=== PATIENT | male | born 1965 | race Caucasian/White ===

== ENCOUNTER 2016-12-13 14:10 | Emergency (ER) | payer OTHER ==
[~2016-12-13] VITALS: Ht 177.8 cm; Wt 90.9 kg
[2016-12-13] MEDS ORDERED: PROT1TAB2 PO (14:19)
[2016-12-13] MEDS ORDERED: CLAR1TAB2 PO (14:19)
[2016-12-13] MEDS ORDERED: IPRATROPIUM 0.5MG/ALBUTEROL 2.5MG INH SOL UD 3ML (DUONEB)(J7620) NEB ONE (14:45)
[2016-12-13] MEDS ORDERED: methylPREDNISolone INJ 125 MG/2 ML VIAL (J2930) IV ONE (14:45)
[2016-12-13] MEDS ORDERED: FAMOTIDINE IV BAG 20 MG in APPROPRIATE DILUENT 1 EA IV ONE (14:45)
[2016-12-13] MEDS ORDERED: EPIP0.3I2 IJ (16:30)
[2016-12-13 16:40] VITALS: BP 133/83
--- NOTE | 2016-12-13 17:29 | ECGEPIP ---
Stationary ECG Study [facility] - ED Test Date: 2016-12-13 Pat Name: LUZ ELENA BARNES Department: Room: - Gender: M Upholstery Tech: rn : 1965 Requested By: EZEQUIEL Chaney Order Number: [id number] Reading MD: Ne Moreno Measurements Intervals [place] Rate: 94 P: 28 TN: 137 QRS: -24 QRSD: 100 T: 10 QT: 347 QTc: 436 Interpretive Statements SINUS RHYTHM PROBABLE LATERAL MYOCARDIAL INFARCTION, OF INDETERMINATE AGE NO PRIOR FOR COMPARISON Electronically Signed On 12-13-2016 17:29:15 EDT by Ne Moreno
== END 2016-12-13 16:43 | disposition home or self-care (01) ==
LOC: M ED 14:10
DX: R06.02 Shortness of breath (principal); R22.0 Localized swelling, mass and lump, head; T63.441A Toxic effect of venom of bees, accidental (unintentional), initial encounter; X58.XXXA Exposure to other specified factors, initial encounter; Y92.89 Other specified places as the place of occurrence of the external cause; Y93.89 Activity, other specified; Y99.8 Other external cause status; Z87.891 Personal history of nicotine dependence; Z79.899 Other long term (current) drug therapy
CPT/HCPCS: 93005; 94640; 96374; 96375; 99284; J2930

== ENCOUNTER 2018-04-28 12:18 | Outpatient (RCR) | payer OTHER ==
[~2018-04-28 12:18] MED LIST: CLAR1TAB2 PO; EPIP0.3I2 IJ; PROT1TAB2 PO
== END 2018-04-29 ==
LOC: M PT 12:18
PROVIDERS: ATTEND Physician Assistant
DX: M25.511 Pain in right shoulder (principal)

== ENCOUNTER → 2018-05-12 | Outpatient (CLI) | payer OTHER ==
[2018-05-12 07:06] LABS: BASO % 0.6 % (0.0-1.0); EOS # 0.3 10^3/uL (0.0-0.50); EOS % 5.2 % (0.0-3.0); HEMATOCRIT 44.8 % (42.0-52.0); HEMOGLOBIN 15.4 g/dl (13.5-17.5); LYMPH # 1.3 10^3/uL (1.5-4.5); LYMPH % 26.6 % (24.0-44.0); MEAN CORPUSCULAR HEMOGLOBIN 29.9 pg (27.0-33.0); MEAN CORPUSCULAR HGB CONC 34.4 g/dl (32.0-36.5); MONO # 0.4 10^3/uL (0.0-0.8); MONO % 7.8 % (0.0-5.0); NEUTROPHILS # 2.9 10^3/uL (1.8-7.7); NEUTROPHILS % 59.2 % (36.0-66.0); PLATELET COUNT, AUTOMATED 236 10^3/uL (150-450); RED BLOOD COUNT 5.15 10^6/uL (4.30-6.10); WHITE BLOOD COUNT 4.9 10^3/uL (4.0-10.0)
[2018-05-12 07:32] LABS: ALT/SGPT 29 U/L (12-78); BILIRUBIN,TOTAL 0.5 MG/DL (0.2-1.0); BLOOD UREA NITROGEN 26 MG/DL (7-18); CALCIUM LEVEL 9.1 MG/DL (8.5-10.1); CARBON DIOXIDE LEVEL 24 MEQ/L (21-32); CHLORIDE LEVEL 108 MEQ/L (98-107); CHOLESTEROL LEVEL 222 MG/DL (<200); GLOMERULAR FILTRATION RATE > 60.0 (>56); GLUCOSE, FASTING 106 MG/DL (70-100); HDL CHOLESTEROL 50 MG/DL (>40); LDL CHOLESTEROL 143 MG/DL (<100); NON-HDL-C 172 MG/DL; POTASSIUM SERUM 4.4 MEQ/L (3.5-5.1); SODIUM LEVEL 141 MEQ/L (136-145); TOTAL PROTEIN 6.5 GM/DL (6.4-8.2); TRIGLYCERIDES LEVEL 145 MG/DL (<150)
== END ==
LOC: M LAB 06:35
PROVIDERS: ATTEND Family Medicine
DX: Z00.00 Encounter for general adult medical examination without abnormal findings (principal)

== ENCOUNTER → 2018-05-14 | Outpatient (CLI) | payer OTHER ==
--- NOTE | 2018-05-14 14:09 | REP ---
MRI RIGHT SHOULDER: TECHNIQUE: Axial T2 fat sat, gradient echo, sagittal oblique T2 fat sat, coronal oblique T1, T2 fat sat. Supraspinatus tendon demonstrates diffuse tendinopathy with a full thickness partial tear, which is fairly high grade. The full thickness tear is predominantly anteriorly located. Other rotator cuff tendons appear intact. There are moderate hypertrophic degenerative changes of the acromioclavicular joint with subchondral marrow edema. Acromion is type 2. Biceps tendon is within the bicipital groove with mild surrounding fluid. There is no Hill-Sachs deformity. No abnormal signal is seen in the deltoid muscle. There is fraying of the biceps labral complex. I do not see evidence of a labral tear. No other abnormal bone marrow signal is seen. There is a moderate joint effusion, with fluid extending into the subacromial/subdeltoid bursae. IMPRESSION: Fairly high-grade full thickness partial tear anterior supraspinatus tendon with moderate diffuse tendinopathy of the more posterior tendon. No other evidence of rotator cuff tendon tear. Moderate hypertrophic degenerative changes acromioclavicular joint with a type 2 acromion. There is fraying of the biceps labral complex with no evidence of a labral tear. Moderate joint effusion with fluid extending into the subacromial/subdeltoid bursae. Electronically Signed by Rigo Rodriges MD 05/14/2018 04:09 P
== END ==
LOC: M RAD 08:40
PROVIDERS: ATTEND Family Medicine
DX: S46.911A Strain of unspecified muscle, fascia and tendon at shoulder and upper arm level, right arm, initial encounter (principal); X58.XXXA Exposure to other specified factors, initial encounter; Y92.9 Unspecified place or not applicable; M25.411 Effusion, right shoulder

== ENCOUNTER → 2018-05-27 | Outpatient (RCR) | payer OTHER | LOC: M PT 05-04 07:08 | PROVIDERS: ATTEND Family Medicine | DX: M25.511 Pain in right shoulder (principal) ==

== ENCOUNTER → 2018-06-25 | Outpatient (CLI) | payer OTHER ==
[2018-06-25 15:13] LABS: BASO % 0.3 % (0.0-1.0); EOS # 0.2 10^3/uL (0.0-0.50); HEMATOCRIT 44.8 % (42.0-52.0); HEMOGLOBIN 15.5 g/dl (13.5-17.5); LYMPH # 1.6 10^3/uL (1.5-4.5); LYMPH % 15.2 % (24.0-44.0); MEAN CORPUSCULAR HEMOGLOBIN 30.7 pg (27.0-33.0); MEAN CORPUSCULAR HGB CONC 34.6 g/dl (32.0-36.5); MEAN CORPUSCULAR VOLUME 88.7 fl (80.0-96.0); MONO # 0.9 10^3/uL (0.0-0.8); MONO % 8.3 % (0.0-5.0); NEUTROPHILS # 7.8 10^3/uL (1.8-7.7); NEUTROPHILS % 73.8 % (36.0-66.0); PLATELET COUNT, AUTOMATED 238 10^3/uL (150-450); RED BLOOD COUNT 5.05 10^6/uL (4.30-6.10); WHITE BLOOD COUNT 10.6 10^3/uL (4.0-10.0)
[2018-06-25 15:42] LABS: ALBUMIN 3.9 GM/DL (3.2-5.2); ALT/SGPT 27 U/L (12-78); BILIRUBIN,TOTAL 0.4 MG/DL (0.2-1.0); BLOOD UREA NITROGEN 19 MG/DL (7-18); CALCIUM LEVEL 8.8 MG/DL (8.5-10.1); CARBON DIOXIDE LEVEL 26 MEQ/L (21-32); CHLORIDE LEVEL 107 MEQ/L (98-107); CREATININE FOR GFR 1.16 MG/DL (0.70-1.30); GLOMERULAR FILTRATION RATE > 60.0 (>56); GLUCOSE, FASTING 148 MG/DL (70-100); POTASSIUM SERUM 3.9 MEQ/L (3.5-5.1); SODIUM LEVEL 141 MEQ/L (136-145); TOTAL PROTEIN 6.6 GM/DL (6.4-8.2)
== END ==
LOC: M LAB 14:44
PROVIDERS: ATTEND Family Medicine
DX: Z01.812 Encounter for preprocedural laboratory examination (principal)

== ENCOUNTER → 2018-08-17 | Outpatient (CLI) | payer OTHER ==
--- NOTE | 2018-08-18 11:48 | REP ---
Clinical: Cough . Comparison: None . Technique: PA and lateral. Findings: The mediastinum and cardiac silhouette are normal. The lung llanos are clear and without acute consolidation, effusion, or pneumothorax. The skeletal structures are intact and normal. Impression: 1. No acute cardiopulmonary process. 2. No prior examinations available for comparison and if the patient remains symptomatic consider chest CT for further investigation. Electronically Signed by Jayy Acosta MD 08/18/2018 11:17 A
== END ==
LOC: M RAD 13:25
PROVIDERS: ATTEND Internal Medicine Pulmonary Disease
DX: R05 Cough (principal)

== ENCOUNTER → 2018-11-05 | Outpatient (CLI) | payer OTHER ==
[2018-11-05 08:46] LABS: BLOOD UREA NITROGEN 22 MG/DL (7-18); CALCIUM LEVEL 9.1 MG/DL (8.5-10.1); CARBON DIOXIDE LEVEL 28 MEQ/L (21-32); CHLORIDE LEVEL 105 MEQ/L (98-107); CREATININE FOR GFR 1.21 MG/DL (0.70-1.30); GLOMERULAR FILTRATION RATE > 60.0 (>56); GLUCOSE, FASTING 95 MG/DL (70-100); POTASSIUM SERUM 3.9 MEQ/L (3.5-5.1); SODIUM LEVEL 141 MEQ/L (136-145)
== END ==
LOC: M LAB 06:55
PROVIDERS: ATTEND Family Medicine
DX: R03.0 Elevated blood-pressure reading, without diagnosis of hypertension (principal)

== ENCOUNTER → 2020-12-12 | Outpatient (REF) | LOC: M LABSMTC 10:21 | PROVIDERS: ATTEND Pediatrics | DX: Z11.52 Encounter for screening for COVID-19 (principal) ==

== ENCOUNTER → 2021-01-07 | Outpatient (CLI) | payer OTHER ==
[~2021-01-07] MED LIST changes: +HYDR-3490 PO; +LORA-243 PO; +NEXI20CA PO
== END ==
LOC: M LABSMTC 09:57
PROVIDERS: ATTEND Anesthesiology
DX: Z01.818 Encounter for other preprocedural examination (principal); Z11.52 Encounter for screening for COVID-19

== ENCOUNTER → 2021-01-10 | Outpatient (CLI) | payer OTHER ==
[2021-01-10 07:29] LABS: HEMATOCRIT 47.3 % (42.0-52.0); MEAN CORPUSCULAR HEMOGLOBIN 30.1 pg (27.0-33.0); MEAN CORPUSCULAR HGB CONC 33.8 g/dl (32.0-36.5); MEAN CORPUSCULAR VOLUME 89.1 fl (80.0-96.0); PLATELET COUNT, AUTOMATED 221 10^3/uL (150-450); RED BLOOD COUNT 5.31 10^6/uL (4.30-6.10); WHITE BLOOD COUNT 5.7 10^3/uL (4.0-10.0)
[2021-01-10 07:53] LABS: ALBUMIN 3.7 GM/DL (3.2-5.2); ALT/SGPT 31 U/L (12-78); BILIRUBIN,TOTAL 0.7 MG/DL (0.2-1.0); BLOOD UREA NITROGEN 19 MG/DL (7-18); CALCIUM LEVEL 9.4 MG/DL (8.5-10.1); CARBON DIOXIDE LEVEL 30 MEQ/L (21-32); CHLORIDE LEVEL 108 MEQ/L (98-107); CHOLESTEROL LEVEL 180 MG/DL (<200); CREATININE FOR GFR 0.95 MG/DL (0.70-1.30); GLOMERULAR FILTRATION RATE > 60.0 (>56); GLUCOSE, FASTING 101 MG/DL (70-100); HDL CHOLESTEROL 45 MG/DL (>40); LDL CHOLESTEROL 119 MG/DL (<100); NON-HDL-C 135 MG/DL; POTASSIUM SERUM 3.9 MEQ/L (3.5-5.1); PROSTATIC SPECIFIC AG MONITOR 0.67 NG/ML (< 4.00); SODIUM LEVEL 143 MEQ/L (136-145); TOTAL PROTEIN 6.5 GM/DL (6.4-8.2); TRIGLYCERIDES LEVEL 79 MG/DL (<150)
== END ==
LOC: M LAB 06:35
PROVIDERS: ATTEND Family Medicine
DX: Z00.00 Encounter for general adult medical examination without abnormal findings (principal); Z12.5 Encounter for screening for malignant neoplasm of prostate

== ENCOUNTER 2021-01-11 06:48 | Day surgery (SDC) | payer OTHER ==
[~2021-01-11] VITALS: Ht 177.8 cm; Wt 85.3 kg
[~2021-01-11 06:48] MED LIST changes: +NS 1,000 ML IV ONE
--- OUTSIDE RECORDS SUMMARY | 2021-01-11 06:55 | CCD | Continuity of Care Document ---
Author Author Reese ANAYA A-C Organization Unknown Address [address] [facility] [facility], [address] [place] [address] Phone [phone] Care Team Providers Care Poultryman Name Role Phone Chidi Diaz M.D. AUTM [phone] Problems Active Problems Provider Date Essential hypertension RHIANNA Lehman Onset: Social History Type Date Description Comments Sex Unknown ETOH Use 6 A Week Tobacco Use Start: Unknown Non Smoker Allergies, Adverse Reactions, Alerts Description No Known Drug Allergies Medications Active Medications SIG Qnty Indications Ordering Provide r Date Suprep Bowel Prep Kit 17.5-3.13-1.6GM/177ML Solution take per doctor's bowel prep instructions. 354ml Z12.1 1 Moises Banks MD 11/06/[address] take 4 tabs by mouth prior to procedure per instructions. 4tabs Z12.11 Moises Banks MD 11/06/[address] take 1 capsule by mouth twice daily. Unknown Claritin 10mg Tablets 1 by mouth every day Unknown Blood Pressure Medication-PT Does Not Know What It Is Daily Unknown History Medications Milk Of Magnesia 1200mg/15ML Suspe nsion take 45 milliliters by mouth as directed on colonoscopy prep sheet. Z12.11 Moises Banks MD 11/06/2020 - 11/06/2020 Immunizations Description No Information Available Vital Signs Date Vital Result Comment 11/06/2020 1:05pm BP Systolic 118 mmHg BP Diastolic 82 mmHg Height 69 inches 5'9" Weight 201.00 lb BMI (Body Mass Index) 29.7 kg/m2 [place] Body Weight 160 lb Weight 91.174 kg BSA (Body Surface Area) 2.07 m2 Results Description No Information Available Procedures Date Code Description Status 11/06/2020 99777 Office/Outpatient Established Lo w MDM 20-29 Min Completed Medical Devices Description No Information Available Encounters Type Date Location Provider Dx Diagnosis Office Visit 11/06/2020 1:00p 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 K21.9 Gastro-esophageal reflux dis ease without esophagitis Assessments Date Code Description Provider 11/06/2020 Z12.11 Encounter for screening for ashli gnant neoplasm of colon Alyson A RHIANNA Anaya 11/06/2020 Z86.010 Personal history of colonic poly ps DEB LehmanC 11/06/2020 K22.70 Gaxiola's esophagus without dysp lasia RHIANNA Lehman 11/06/2020 K21.9 Gastro-esophageal reflux disease without esophagitis Alyson A RHIANNA Anaya Plan of Treatment 11/06/2020 - Alyson Gonzalez RHIANNA Anaya* Z12.11 Encounter for screening for malignant neoplasm of colon * Z86.010 Personal history of colonic polyps * K22.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 Reviewed risks and benefits of the procedures, as well as other options, with the patient. Prep for this procedure was discussed with patient, including risks and side effects associated with the prep. Patient verbalized understanding of all of the above and is in agreement to proceed. Patient will seek medical attention for any acute changes. Will monitor. * Follow up:* As scheduled, sooner if needed. Functional Status Description No Information Available Mental Status Description No Information Available Referrals Refer to Reason for Referral Status Appt Date Alyson Anaya, RPA-C screening Created [facility] Gastroenterology [address] [place], [place] [address] [phone]
--- OUTSIDE RECORDS SUMMARY | 2021-01-11 06:55 | CCD | Continuity of Care Document ---
Author Author Reese ANAYA A-C Organization Unknown Address [address] [facility] [facility], [address] [place] [address] Phone [phone] Care Team Providers Care Biofuels Plant Construction Worker Name Role Phone Chidi Diaz M.D. AUTM [phone] Problems Active Problems Provider Date Essential hypertension [...] lb BMI (Body Mass Index) 29.7 kg/m2 [place] Body Weight 160 lb Weight 91.174 kg BSA (Body Surface Area) 2.07 m2 Results Description No Information Available Procedures Description No Information Available Medical Devices Description No Information Available Encounters Description No Information Available Assessments Date Code Description Provider 11/06/2020 Z12.11 Encounter for screening for ashli gnant neoplasm of colon RHIANNA Lehman 11/06/2020 Z86.010 Personal history of colonic poly ps RHIANNA Lehman 11/06/2020 K22.70 Gaxiola's esophagus without dysp lasia RHIANNA Lehman 11/06/2020 K21.9 Gastro-esophageal reflux disease without esophagitis RHIANNA Lehman Plan of Treatment 11/06/2020 - RHIANNA Lehman* Z12.11 Encounter for screening for malignant neoplasm [...] Description No Information Available Referrals Refer to Dr Reason for Referral Status Appt Date Alyson Anaya RPA-C screening Created [facility] Gastroenterology [address] [place] [address] [phone]
--- OUTSIDE RECORDS SUMMARY | 2021-01-11 06:55 | CCD | Continuity of Care Document ---
Author Author Reese ANAYA A-C Organization Unknown Address [address] [facility], [address] [place] [address] Phone [phone] Care Team Providers Care State Attorney Name Role Phone Chidi Diaz M.D. AUTM [phone] Problems Active Problems Provider Date Essential hypertension [...] lb BMI (Body Mass Index) 29.7 kg/m2 [place] Body Weight 160 lb Weight 91.174 kg [...] Appt Date Alyson Anaya RPA-C screening Created [facility] Gastroenterology [address] [place] [address] [phone]
--- OUTSIDE RECORDS SUMMARY | 2021-01-11 06:55 | CCD ---
Continuity of Care Document (CCD) Created on: 11/06/2020 Reese Loya External Reference #: [id number] : [id number] Sex: Male Author Author Reese ANAYA A-C Organization Unknown Address [address] [facility], [address] [place] [address] Phone [phone] Care Team Providers Care Dental Hygienist Mobile Coordinator Name Role Phone Chidi Diaz M.D. AUTM [phone] Problems Active Problems Provider Date Essential hypertension [...] lb BMI (Body Mass Index) 29.7 kg/m2 [place] Body Weight 160 lb Weight 91.174 kg [...] Appt Date Alyson Anaya RPA-C screening Created [facility] Gastroenterology [address] [place] [address] [phone]
--- OUTSIDE RECORDS SUMMARY | 2021-01-11 06:55 | CCD | Continuity of Care Document ---
Author Author Reese GIBSON D.O. Organization Unknown Address [address] [address] Phone [phone] Care Team Providers Care Receiving Manager Name Role Phone Chidi Diaz M.D. AUTM [phone] AUTM Unavailable Problems Active Problems Provider Date Essential hypertension Alyson Nichols RPA-C Onset: Diaphragmatic hernia Moises Gibson D.O Onset: 01/09/2021 Acute bronchitis Moises Gibson D.O Onset: 01/09/2021 Social History Type Date Description Comments Sex Unknown Cigarette Use Former Cigarette Use Pack Years - 30 ETOH Use 6 A Week Tobacco Use Start: Unknown Non Smoker Tobacco Use Start: Unknown End: Unknown Patient is a former smoker Smoking Status Reviewed: 01/09/21 Patient is a former smoker Allergies and adverse reactions Description No Known Drug Allergies Medications Active Medications SIG Qnty Indications Ordering Provide r Date Suprep Bowel Prep Kit 17.5-3.13-1.6GM/177ML Solution take per doctor's bowel prep instructions. 354ml Z12.1 1 Moises Banks MD 11/06/2020 Dulcolax 5mg Tablets take 4 tabs by mouth prior to [...] Available Vital Signs Date Vital Result Comment 01/09/2021 8:12am BP Systolic 124 mmHg BP Diastolic 78 mmHg Heart Rate 59 /min O2 % BldC Oximetry 98 % Height 69 inches 5'9" Weight 194.00 lb BMI (Body Mass Index) 28.6 kg/m2 [place] Body Weight 160 lb Weight 87.998 kg BSA (Body Surface Area) 2.04 m2 11/06/2020 1:05pm BP Systolic 118 mmHg BP Diastolic 82 mmHg Height 69 inches 5'9" Weight 201.00 lb BMI (Body Mass Index) 29.7 kg/m2 [place] Body Weight 160 lb Weight 91.174 kg BSA (Body Surface Area) 2.07 m2 Results Test Acquired Date Facility Test Result H/L Range Note FVL/[place] 01/09/2021 [facility] SEE IMAGE FVC-Pred 4.73 L FVC-Pre 4.89 L FVC-%Pred-Pre 103 L FVC-LLN 3.82 L Fev1-Pred 3.61 L Fev1-Pre 3.72 L Fev1-%Pred-Pre 103 L Fev1-LLN 2.85 L Fev6-Pred 4.53 L Fev6-Pre 4.88 L Fev6-%Pred-Pre 107 L Fev6-LLN 3.64 L Aoe9dqp-Qvvw 76 % Iyn6tfn-Nxm 76 % Xrq3gaj-%Pred-Pre 99 % Axs0psu-FEO 67 % Ash8fno-Dqsu 96 % Lpo4ctq-Gmx 100 % Cvw4ssc-%Pred-Pre 104 % FEFMax-Pred 9.27 L/E/sec FEFMax-Pre 8.31 L/E/sec FEFMax-%Pred-Pre 89 L/E/sec FEFMax-LLN 7.01 L/E/sec Ios3719-Tkii 3.08 L/E/sec Ojf5173-Xyf 3.05 L/E/sec Zap6113-%Pred-Pre 99 L/E/sec Ztb1516-QQD 1.52 L/E/sec ExpTime-Pre 6.85 sec Nur9eky9-Zqic 80 % Vgx9hma3-Ufn 76 % Gdu4lmh7-%Pred-Pre 95 % Yua6akz2-BFW 71 % Procedures Date Code Description Status 01/09/2021 94740 Office/Outpatient New Moderate M DM 45-59 Minutes Completed 11/06/2020 70606 Office/Outpatient Established Lo w MDM 20-29 Min Completed Medical Devices Description No Information Available Encounters Type Date Location Provider Dx Diagnosis Office Visit 01/09/2021 8:30a [facility] Pulmonary/Thoracic D Angelina OgO J20.9 Acute bronchitis, unspecifie d K44.9 Diaphragmatic hernia without obstruction or gangrene Office Visit 11/06/2020 1:00p [facility] Gastroenterology [facility] ctice Alyson Hooksfe, DEBC Z12.11 Encounter for screening for malignant neoplasm of colon Z86.010 Personal history of colonic polyps K22.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 K21.9 Gastro-esophageal reflux dis ease without esophagitis Assessments Date Code Description Provider 01/09/2021 J20.9 Acute bronchitis, unspecified Da curtis Gibson D.O 01/09/2021 K44.9 Diaphragmatic hernia without obs truction or gangrene Moises Gibson D.O 11/06/2020 Z12.11 Encounter for screening for ashli gnant neoplasm of colon Alyson Nichols, MARIA DEL CARMEN-C 11/06/2020 Z86.010 Personal history of colonic poly ps Alyson Anthonyjose, MARIA DEL CARMEN-C 11/06/2020 K22.70 Gaxiola's esophagus without dysp lasia Alyson Gonzalez RHIANNA Nichols 11/06/2020 K21.9 Gastro-esophageal reflux disease without esophagitis Alyson Gonzalez RHIANNA Nichols Plan of Treatment Future Appointment(s):* 01/16/2021 3:31 pm - Uriel Ellison M.D. at [facility] Gastroenterology Practice * 01/11/2021 7:30 am - Uriel Ellison M.D. at [facility] Gastroenterology Practice 01/09/2021 - Moises Gibson D.O* J20.9 Acute bronchitis, unspecified * K44.9 Diaphragmatic hernia without obstruction or gangrene * * New Xrays:* Chest, 2 Views, PA & Lat, Ordered: 01/09/21 * Follow up:* cxr and call with results follow up is PRN please Functional Status Description No Information Available Mental Status Description No Information Available Referrals Refer to Reason for Referral Status Appt Date Alyson Nichols, MARIA DEL CARMEN-C screening Created [facility] Gastroenterology [address] [place] [address] [phone]
--- OUTSIDE RECORDS SUMMARY | 2021-01-11 06:55 | CCD | Continuity of Care Document ---
Author Author Reese ANAYA A-C Organization Unknown Address [address] [facility] [address], [address] [place] [address] Phone [phone] Care Team Providers Care Inbound Customer Service Representative Name Role Phone Chidi Diaz M.D. AUTM [phone] Problems Active Problems Provider Date Essential hypertension [...] lb BMI (Body Mass Index) 29.7 kg/m2 [place] Body Weight 160 lb Weight 91.174 kg [...] Appt Date Alyson Anaya RPA-C screening Created [facility] Gastroenterology [address] [place] [address] [phone]
--- OUTSIDE RECORDS SUMMARY | 2021-01-11 06:55 | CCD | Continuity of Care Document ---
Author Author Reese HARKINS D.O. Organization Unknown Address [address] [address] Phone [phone] Care Team Providers Care Digester Cook Name Role Phone Chidi Diaz M.D. AUTM [phone] Problems Active Problems Provider Date Essential hypertension RHIANNA Lehman Onset: Social History Type Date Description Comments Sex Unknown ETOH Use 6 A Week Tobacco Use Start: Unknown Non Smoker Allergies and adverse reactions Description No Known [...] lb BMI (Body Mass Index) 29.7 kg/m2 [place] Body Weight 160 lb Weight 91.174 kg BSA (Body Surface Area) 2.07 m2 Results Description No Information Available Procedures Date Code Description Status 11/06/2020 05306 Office/Outpatient Established Lo w [facility] 20-29 Min Completed Medical Devices Description No Information Available Encounters Type Date Location Provider Dx Diagnosis Office Visit 11/06/2020 1:00p [facility] Gastroenterology [facility] ctice RHIANNA Lehman Z12.11 Encounter for screening for malignant neoplasm [...] without esophagitis RHIANNA Lehman Plan of Treatment Future Appointment(s):* 01/16/2021 3:31 pm - Uriel Ellison M.D. at [facility] Gastroenterology Practice * 01/11/2021 7:30 am - Uriel Ellison M.D. at [facility] Gastroenterology Practice 11/06/2020 - RHIANNA Lehman* Z12.11 Encounter for [...] Reason for Referral Status Appt Date Alyson Nichols RPA-C screening Created [facility] Gastroenterology [address] [place], [place] [address] [phone]
--- OUTSIDE RECORDS SUMMARY | 2021-01-11 06:56 | CCD ---
Author Author [facility] Organization [facility] Address Unknown Phone Unavailable Care Team Providers Care Special Effects Makeup Artist Name Role Phone Charlebois, A Alyson RPA C Unavailable Unavailable Charlebois, A Alyson RPA C Unavailable Unavailable Charlebois, A Alyson RPA C Unavailable Unavailable Charlebois, A Alyson RPA C Unavailable Unavailable Charlebois, A Alyson RPA C Unavailable Unavailable Charlebois, A Alyson RPA C Unavailable Unavailable Charlebois, A Alyson RPA C Unavailable Unavailable Charlebois, A Alyson RPA C Unavailable Unavailable Charlebois, A Alyson RPA C Unavailable Unavailable Charlebois, A Alyson RPA C Unavailable Unavailable Charlebois, A Alyson RPA C Unavailable Unavailable Charlebois, A Alyson RPA C Unavailable Unavailable Charlebois, A Alyson RPA C Unavailable Unavailable Charlebois, A Alyson RPA C Unavailable Unavailable Charlebois, A Alyson RPA C Unavailable Unavailable Charlebois, A Alyson RPA C Unavailable Unavailable Charlebois, A Alyson RPA C Unavailable Unavailable Charlebois, A Alyson RPA C Unavailable Unavailable Charlebois, A Alyson RPA C Unavailable Unavailable Charlebois, A Alyson RPA C Unavailable Unavailable Charlebois, A Alyson RPA C Unavailable Unavailable Charlebois, A Alyson RPA C Unavailable Unavailable Charlebois, A Alyson RPA C Unavailable Unavailable Charlebois, A Alyson RPA C Unavailable Unavailable Charlebois, A Alyson RPA C Unavailable Unavailable Charlebois, A Alyson RPA C Unavailable Unavailable Charlebois, A Alyson RPA C Unavailable Unavailable Charlebois, A Alyson RPA C Unavailable Unavailable Charlebois, A Alyson RPA C Unavailable Unavailable Charlebois, A Alyson RPA C Unavailable Unavailable Charlebois, A Alyson RPA C Unavailable Unavailable Charlebois, A Alyson RPA C Unavailable Unavailable Charlebois, A Alyson RPA C Unavailable Unavailable Rechlin, P Moises DO Unavailable Unavailable Rechlin, P Moises DO Unavailable Unavailable Rechlin, P Moises DO Unavailable Unavailable Rechlin, P Moises DO Unavailable Unavailable Rechlin, P Moises DO Unavailable Unavailable Rechlin, P Moises DO Unavailable Unavailable Rechlin, P Moises DO Unavailable Unavailable Rechlin, P Moises DO Unavailable Unavailable Rechlin, P Moises DO Unavailable Unavailable Rechlin, P Moises DO Unavailable Unavailable Rechlin, P Moises DO Unavailable Unavailable Rechlin, P Moises DO Unavailable Unavailable Rechlin, P Moises DO Unavailable Unavailable Rechlin, P Moises DO Unavailable Unavailable Rechlin, P Moises DO Unavailable Unavailable Rechlin, P Moises DO Unavailable Unavailable Rechlin, P Moises DO Unavailable Unavailable Rechlin, P Moises DO Unavailable Unavailable Rechlin, P Moises DO Unavailable Unavailable Rechlin, P Moises DO Unavailable Unavailable Rechlin, P Moises DO Unavailable Unavailable Rechlin, P Moises DO Unavailable Unavailable Rechlin, P Moises DO Unavailable Unavailable Rechlin, P Moises DO Unavailable Unavailable Rechlin, P Moises DO Unavailable Unavailable Rechlin, P Moises DO Unavailable Unavailable Rechlin, P Moises DO Unavailable Unavailable Rechlin, P Moises DO Unavailable Unavailable Rechlin, P Moises DO Unavailable Unavailable Rechlin, P Moises DO Unavailable Unavailable Rechlin, P Moises DO Unavailable Unavailable Rechlin, P Moises DO Unavailable Unavailable Rechlin, P Moises DO Unavailable Unavailable Rechlin, P Moises DO Unavailable Unavailable Rechlin, P Moises DO Unavailable Unavailable Rechlin, P Moises DO Unavailable Unavailable Rechlin, P Moises DO Unavailable Unavailable Rechlin, P Moises DO Unavailable Unavailable Rechlin, P Moises DO Unavailable Unavailable Rechlin, P Moises DO Unavailable Unavailable Rechlin, P Moises DO Unavailable Unavailable Rechlin, P Moises DO Unavailable Unavailable Rechlin, P Moises DO Unavailable Unavailable Rechlin, P Moises DO Unavailable Unavailable Rechlin, P Moises DO Unavailable Unavailable Rechlin, P Moises DO Unavailable Unavailable Rechlin, P Moises DO Unavailable Unavailable Rechlin, P Moises DO Unavailable Unavailable Rechlin, P Moises DO Unavailable Unavailable Rechlin, P Moises DO Unavailable Unavailable Rechlin, P Moises DO Unavailable Unavailable Re-disclosure Warning The records that you are about to access may contain information from federally-assisted alcohol or drug abuse programs. If such information is present, then the following federally mandated warning applies: This information has been disclosed to you from records protected by federal confidentiality rules (42 CFR part 2). The federal rules prohibit you from making any further disclosure of this information unless further disclosure is expressly permitted by the written consent of the person to whom it pertains or as otherwise permitted by 42 CFR part 2. A general authorization for the release of medical or other information is NOT sufficient for this purpose. The Federal rules restrict any use of the information to criminally investigate or prosecute any alcohol or drug abuse patient.The records that you are about to access may contain highly sensitive health information, the redisclosure of which is protected by Article 27-F of the [facility] Public Health law. If you continue you may have access to information: Regarding HIV / AIDS; Provided by facilities licensed or operated by the [facility] Office of Mental Health; or Provided by the [facility] Office for People With Developmental Disabilities. If such information is present, then the following [facility] mandated warning applies: This information has been disclosed to you from confidential records which are protected by state law. State law prohibits you from making any further disclosure of this information without the specific written consent of the person to whom it pertains, or as otherwise permitted by law. Any unauthorized further disclosure in violation of state law may result in a fine or care home sentence or both. A general authorization for the release of medical or other information is NOT sufficient authorization for further disc losure. Family History Family Member Name Family Member Gender Family Member Status Date o f Status Description Data Source(s) Unknown Unknown Problem [facility] ([facility]) Unknown Unknown Unknown Unknown Problem [facility] Encounters Encounter Providers Location Date Indications Data Source(s ) Outpatient Attender: Moises Scott/Pallavi/José Miguel/Jose C su 01/09/2021 08:30:00 AM EDT [facility] ([facility]) Outpatient Attender: Alyson Jordan/Pallavi/Lisa aguilar/Darren 11/06/2020 01:00:00 PM EDT [facility] ([facility]) Immunizations Vaccine Date Status Description Data Source(s) COVID-19 VACCINE Pfizer 04/24/2020 12:00:00 AM EST completed [facility] Vaccine Series Complete: YESThis Data wa s Submitted to [facility] Via [email or web address]. COVID-19 VACCINE Pfizer 04/03/2020 12:00:00 AM EST completed [facility] Vaccine Series Complete: NOThis Data was Submitted to [facility] Via [email or web address]. Medications Medication Brand Name Start Date Product Form Dose Route Admi nistrative Instructions Pharmacy Instructions Status Indications Reaction Description Data Source(s) Magnesium Hydroxide 80 MG/ML Oral Suspension Milk Of Magnesi a 11/06/2020 12:00:00 AM EDT ORAL completed [facility] ([facility] ) Bisacodyl 5 MG Delayed Release Oral Tablet [Dulcolax] Dulcol ax 11/06/2020 12:00:00 AM EDT ORAL active M EDENT ([facility]) Suprep Bowel Prep Kit Suprep Bowel Prep Kit 11/06/2020 12:00:00 AM EDT active [facility] ([facility]) Insurance Providers Payer name Policy type / Coverage type Policy ID Covered republican ID Covered republican's relationship to odom Policy Odom Plan Information [facility] [id number] [facility] [employer] Commercial [id number] Self [facility] [id number] SP [id number] [facility] Commercial [id number] Self [id number] [facility] Commercial [id number] Self [id number] [facility] Commercial [id number] Self [id number] [facility] [employer] [id number] Self [id number] [facility] Commercial [id number] Self [facility] Commercial [id number] [facility] Commercial [id number] Self [id number] Problems, Conditions, and Diagnoses Code Display Name Description Problem Type Effective Dates Data Source(s) J20.9 Acute bronchitis Acute bronchitis Problem 01/09/2021 12 :00:00 AM EDT [facility] ([facility]) K44.9 Diaphragmatic hernia Diaphragmatic hernia Problem 01/09/2021 12:00:00 AM EDT [facility] ([facility]) [id number] Essential hypertension Essential hypertension Problem 11/06/2020 12:00:00 AM EDT [facility] ([facility]) Surgeries/Procedures Procedure Description Date Indications Data Source(s) OFFICE OUTPATIENT NEW 45 MINUTES 01/09/2021 12:00:00 A M EDT [facility] ([facility]) OFFICE OUTPATIENT VISIT 15 MINUTES 11/06/2020 12:00:00 AM EDT [facility] ([facility]) Results ID Date Data Source [id number] 01/09/2021 08:11:00 AM EDT [facility] ([facility]) Name Value Range Interpretation Code Description Data Zaira rce(s) Supporting Document(s) PDFReport Laboratory test result [facility] ([facility]) FVC-Pred 4.73 L [facility] ([facility]) FVC-%Pred-Pre 103 L [facility] ([facility]) FVC-LLN 3.82 L [facility] ([facility]) FVC-Pre 4.89 L [facility] ([facility]) Fev1-Pre 3.72 L [facility] ([facility]) Fev1-Pred 3.61 L [facility] ([facility]) Fev1-LLN 2.85 L [facility] ([facility]) Fev1-%Pred-Pre 103 L [facility] ([facility], ) Fev6-Pred 4.53 L [facility] ([facility]) Fev6-%Pred-Pre 107 L [facility] ([facility]) Fev6-Pre 4.88 L [facility] ([facility]) Fev6-LLN 3.64 L [facility] ([facility]) Hoq3iic-Niqf 76 % [facility] ([facility]) Cds2gsr-Xwm 76 % [facility] ([facility]) Khb2nhr-Zork 96 % [facility] ([facility]) Yuw4tah-%Pred-Pre 99 % [facility] ([facility]) Jlc8spo-RJY 67 % [facility] ([facility]) FEFMax-Pred 9.27 L/E/sec [facility] ([facility]) Lxc4ajd-Uus 100 % [facility] ([facility]) Tnd9hhd-%Pred-Pre 104 % [facility] ([facility]) FEFMax-Pre 8.31 L/E/sec [facility] ([facility]) FEFMax-%Pred-Pre 89 L/E/sec [facility] ([facility]) FEFMax-LLN 7.01 L/E/sec [facility] ([facility]) Zfq8479-Btlp 3.08 L/E/sec [facility] ([facility]) Pvs5470-Nuu 3.05 L/E/sec [facility] ([facility]) Jia4440-%Pred-Pre 99 L/E/sec [facility] ([facility]) Tzi0399-ZGU 1.52 L/E/sec [facility] ([facility]) ExpTime-Pre 6.85 sec [facility] ([facility]) Loc4vkp5-%Pred-Pre 95 % [facility] ([facility]) Nso5pko2-Kkf 76 % [facility] ([facility]) Jpg9arr6-Aaiv 80 % [facility] ([facility]) Rxd7kin6-CUL 71 % [facility] ([facility]) ID Date Data Source [id number] 12/12/2020 10:30:00 AM EDT [facility] Name Value Range Interpretation Code Description Data Zaira rce(s) Supporting Document(s) SARS coronavirus 2 RNA [Presence] in Res piratory specimen by DUARTE with probe detection [facility] This lab was ordered by [facility] a nd reported by [facility]. Procedure Social History Code Duration Value Status Description Data Source(s ) Smoking 01/09/2021 12:00:00 AM EDT Patient is a former smoker completed Patient is a former smoker [facility] ([facility]) Vital Signs ID Date Data Source UNK Name Value Range Interpretation Code Description Data Source(s) Systolic blood pressure 124 mm[Hg] 124 mm[Hg] [facility] ([facility]) Diastolic blood pressure 78 mm[Hg] 78 mm[Hg] [facility] ([facility]) Heart rate 59 /min 59 /min [facility] ([facility]) Oxygen saturation in Arterial blood by Pulse oximetry 98 % 98 % [facility] ([facility]) Body height 69 [in_i] 69 [in_i] [facility] ([facility]) 5'9" Body weight 194.00 [lb_av] 194.00 [lb_av] [facility] ([facility] Body mass index (BMI) [Ratio] 28.6 kg/m2 28.6 k g/m2 [facility] ([facility]) [place] body weight 160 [lb_av] 160 [lb_av] [facility] ([facility]) Body weight 87.998 kg 87.998 kg [facility] ([facility]) Body surface area Derived from formula 2.04 m2 2.04 m2 [facility] ([facility]) Systolic blood pressure 118 mm[Hg] 118 mm[Hg] [facility] ([facility]) Body height 69 [in_i] 69 [in_i] [facility] ([facility]) 5'9" Diastolic blood pressure 82 mm[Hg] 82 mm[Hg] [facility] ([facility]) Body weight 201.00 [lb_av] 201.00 [lb_av] [facility] ([facility]) Body mass index (BMI) [Ratio] 29.7 kg/m2 29.7 k g/m2 [facility] ([facility]) [place] body weight 160 [lb_av] 160 [lb_av] [facility] ([facility]) Body weight 91.174 kg 91.174 kg [facility] ([facility]) Body surface area Derived from formula 2.07 m2 2.07 m2 [facility] ([facility])
[2021-01-11] MEDS ORDERED: propofoL 200 MG/20 ML VIAL As Ordered ONE ×2 (07:18→08:10)
[2021-01-11] MEDS ORDERED: LIDOCAINE 2% 100MG/5ML SDV (FOR ANES.) As Ordered ONE (07:18)
[2021-01-11] MEDS ORDERED: fentaNYL 100 MCG/2 ML INJECTION (J3010) As Ordered ONE (07:19)
--- NOTE | 2021-01-11 08:19 | ROOR ---
Patient Name: Reese Loya Procedure Date: 01/11/2021 7:29 AM Date of : 1965 Age: 55 Room: [facility] Gender: Male Note Status: Finalized Procedure: Upper GI endoscopy Indications: Screening for Gaxiola's esophagus, Follow-up of Gaxiola's esophagus Providers: Uriel Ellison MD Referring MD: Chidi Diaz MD Requesting Provider: Medicines: Monitored Anesthesia Care Complications: No immediate complications. Procedure: Pre-Anesthesia Assessment: - Prior to the procedure, a History and Physical was performed, and patient medications and allergies were reviewed. The patient is competent. The risks and benefits of the procedure and the sedation options and risks were discussed with the patient. All questions were answered and informed consent was obtained. Patient identification and proposed procedure were verified by the physician, the nurse and the anesthesiologist in the procedure room. Mental Status Examination: alert and oriented. Airway Examination: normal oropharyngeal airway and neck mobility. Respiratory Examination: clear to auscultation. CV Examination: normal. Prophylactic Antibiotics: The patient does not require prophylactic antibiotics. Prior Anticoagulants: The patient has taken no previous anticoagulant or antiplatelet agents. ASA Grade Assessment: II - A patient with mild systemic disease. After reviewing the risks and benefits, the patient was deemed in satisfactory condition to undergo the procedure. The anesthesia plan was to use monitored anesthesia care (MAC). Immediately prior to administration of medications, the patient was re-assessed for adequacy to receive sedatives. The heart rate, respiratory rate, oxygen saturations, blood pressure, adequacy of pulmonary ventilation, and response to care were monitored throughout the procedure. The physical status of the patient was re-assessed after the procedure. The Endoscope was introduced through the mouth, and advanced to the second part of duodenum. The upper GI endoscopy was accomplished without difficulty. The patient tolerated the procedure well. Findings: A small hiatal hernia was present. LA Grade B (one or more mucosal breaks greater than 5 mm, not extending between the tops of two mucosal folds) esophagitis with no bleeding was found in the distal esophagus. Biopsies were taken with a cold forceps for histology. Verification of patient identification for the specimen was done by the physician and nurse using the patient's name, date and medical record number. Scattered moderate inflammation characterized by erythema and granularity was found in the gastric body and in the gastric antrum. Biopsies were taken with a cold forceps for Helicobacter pylori testing. The duodenal bulb and second portion of the duodenum were normal. Impression: - Small hiatal hernia. - LA Grade B reflux esophagitis. Rule out Gaxiola's esophagus. Biopsied. - Gastritis. Biopsied. - Normal duodenal bulb and second portion of the duodenum. Recommendation: - Patient has a contact number available for emergencies. The signs and symptoms of potential delayed complications were discussed with the patient. Return to normal activities tomorrow. Written discharge instructions were provided to the patient. - High fiber diet. - Continue present medications. - Follow an antireflux regimen. - Recommend acid suppression medication for 8 weeks. - Await pathology results. - Repeat upper endoscopy in 5 years for surveillance of Gaxiola's esophagus. - Telephone GI clinic for pathology results in 2 weeks. - Return to primary care physician. Procedure Code(s): --- Professional --- 46619, Esophagogastroduodenoscopy, flexible, transoral; with biopsy, single or multiple Diagnosis Code(s): --- Professional --- K44.9, Diaphragmatic hernia without obstruction or gangrene K21.0, Gastro-esophageal reflux disease with esophagitis K29.70, Gastritis, unspecified, without bleeding K22.70, Gaxiola's esophagus without dysplasia Z13.810, Encounter for screening for upper gastrointestinal disorder CPT copyright 2019 [employer]. All rights reserved. The codes documented in this report are preliminary and upon gun club manager review may be revised to meet current compliance requirements. Uriel Ellison MD Uriel Ellison MD 01/11/2021 8:18:58 AM Electronically signed by Uriel Ellison MD Number of Addenda: 0 Note Initiated On: 01/11/2021 7:29 AM Estimated Blood Loss: Estimated blood loss was minimal.
--- NOTE | 2021-01-11 08:21 | ROOR ---
Patient Name: Reese Loya Procedure Date: 01/11/2021 7:30 AM Date of : 1965 Age: 55 Room: [facility] Gender: Male Note Status: Finalized Procedure: Colonoscopy Indications: High risk colon cancer surveillance: Personal history of colonic polyps Providers: Uriel Ellison MD Referring MD: Chidi Diaz MD Requesting Provider: Medicines: Monitored Anesthesia Care Complications: No immediate complications. Procedure: Pre-Anesthesia Assessment: - Prior to the procedure, a History and Physical was performed, and patient medications and allergies were reviewed. The patient is competent. The risks and benefits of the procedure and the sedation options and risks were discussed with the patient. All questions were answered and informed consent was obtained. Patient identification and proposed procedure were verified by the physician, the nurse and the anesthesiologist in the procedure room. Mental Status Examination: alert and oriented. Airway Examination: normal oropharyngeal airway and neck mobility. Respiratory Examination: clear to auscultation. CV Examination: normal. Prophylactic Antibiotics: The patient does not require prophylactic antibiotics. Prior Anticoagulants: The patient has taken no previous anticoagulant or antiplatelet agents. ASA Grade Assessment: II - A patient with mild systemic disease. After reviewing the risks and benefits, the patient was deemed in satisfactory condition to undergo the procedure. The anesthesia plan was to use monitored anesthesia care (MAC). Immediately prior to administration of medications, the patient was re-assessed for adequacy to receive sedatives. The heart rate, respiratory rate, oxygen saturations, blood pressure, adequacy of pulmonary ventilation, and response to care were monitored throughout the procedure. The physical status of the patient was re-assessed after the procedure. The Colonoscope was introduced through the anus and advanced to the terminal ileum, with identification of the appendiceal orifice and IC valve. The colonoscopy was performed without difficulty. The patient tolerated the procedure well. The quality of the bowel preparation was good. The terminal ileum, ileocecal valve, appendiceal orifice, and rectum were photographed. Scope insertion time was 2 minutes. Scope withdrawal time was 9 minutes. The total duration of the procedure was 12 minutes. Findings: The perianal and digital rectal examinations were normal. The terminal ileum appeared normal. A 8 mm polyp was found in the sigmoid colon. The polyp was flat and sessile. The polyp was removed with a cold snare. Resection and retrieval were complete. Verification of patient identification for the specimen was done by the physician and nurse using the patient's name, date and medical record number. Estimated blood loss was minimal. Non-bleeding external and internal hemorrhoids were found during retroflexion. The hemorrhoids were small. Impression: - The examined portion of the ileum was normal. - One 8 mm polyp in the sigmoid colon, removed with a cold snare. Resected and retrieved. - Non-bleeding external and internal hemorrhoids. Recommendation: - Patient has a contact number available for emergencies. The signs and symptoms of potential delayed complications were discussed with the patient. Return to normal activities tomorrow. Written discharge instructions were provided to the patient. - High fiber diet. - Continue present medications. - Await pathology results. - Repeat colonoscopy in 5 years for surveillance based on pathology results. - Telephone GI clinic for pathology results in 2 weeks. - Return to primary care physician. Procedure Code(s): --- Professional --- 93752, Colonoscopy, flexible; with removal of tumor(s), polyp(s), or other lesion(s) by snare technique Diagnosis Code(s): --- Professional --- Z86.010, Personal history of colonic polyps K64.8, Other hemorrhoids K63.5, Polyp of colon CPT copyright 2019 [employer]. All rights reserved. The codes documented in this report are preliminary and upon advertising space clerk review may be revised to meet current compliance requirements. Uriel Ellison MD Uriel Ellison MD 01/11/2021 8:21:24 AM Electronically signed by Uriel Ellison MD Number of Addenda: 0 Note Initiated On: 01/11/2021 7:30 AM Estimated Blood Loss: Estimated blood loss was minimal.
[2021-01-11 08:40] VITALS: BP 132/87
== END 2021-01-11 08:48 | disposition home or self-care (01) ==
LOC: M OPP 06:48
PROVIDERS: ATTEND Internal Medicine Gastroenterology
DX: Z12.11 Encounter for screening for malignant neoplasm of colon (principal); Z86.010 Personal history of colon polyps; D12.5 Benign neoplasm of sigmoid colon; K64.8 Other hemorrhoids; K44.9 Diaphragmatic hernia without obstruction or gangrene; K21.00 Gastro-esophageal reflux disease with esophagitis, without bleeding; K29.70 Gastritis, unspecified, without bleeding; K22.70 Barrett's esophagus without dysplasia; Z79.899 Other long term (current) drug therapy
CPT/HCPCS: 43239; 45385; 88305; J3010

== ENCOUNTER → 2021-01-14 | Outpatient (CLI) | payer OTHER ==
[~2021-01-14] MED LIST changes: -NS 1,000 ML IV ONE
--- NOTE | 2021-01-14 08:22 | REP ---
INDICATION: ACUTE BRONCHITIS, UNSPECIFIED COMPARISON: 08/17/2018 TECHNIQUE: PA and lateral. FINDINGS: The mediastinum and cardiac silhouette are normal. The lung llanos are clear and without acute consolidation, effusion, or pneumothorax. The skeletal structures are intact and normal. IMPRESSION: No acute cardiopulmonary process. <Electronically signed by Jayy Acosta > 01/14/21 0818
== END ==
LOC: M RAD 07:03
PROVIDERS: ATTEND Internal Medicine Pulmonary Disease
DX: J20.9 Acute bronchitis, unspecified (principal)

== ENCOUNTER → 2022-05-23 | Outpatient (CLI) | payer OTHER ==
[2022-05-23 12:53] LABS: BASO % 0.4 % (0.0-1.0); EOS # 0.2 10^3/uL (0.0-0.5); EOS % 4.4 % (0.0-3.0); HEMATOCRIT 48.5 % (42.0-52.0); LYMPH # 1.4 10^3/uL (1.5-5.0); LYMPH % 25.7 % (24.0-44.0); MEAN CORPUSCULAR HEMOGLOBIN 29.9 pg (27.0-33.0); MEAN CORPUSCULAR VOLUME 90.7 fl (80.0-96.0); MONO # 0.8 10^3/uL (0.0-0.8); MONO % 14.4 % (2.0-8.0); NEUTROPHILS % 54.7 % (36.0-66.0); PLATELET COUNT, AUTOMATED 207 10^3/uL (150-450); RED BLOOD COUNT 5.35 10^6/uL (4.30-6.10); WHITE BLOOD COUNT 5.5 10^3/uL (4.0-10.0)
[2022-05-23 13:17] LABS: ALBUMIN 3.8 G/DL (3.2-5.2); ALKALINE PHOSPHATASE 66 U/L (46-116); ALT/SGPT 32 U/L (7.0-40); AST/SGOT 35 U/L (<34); BILIRUBIN,TOTAL 0.5 MG/DL (0.3-1.2); BLOOD UREA NITROGEN 13 MG/DL (9-23); CARBON DIOXIDE LEVEL 32 MMOL/L (20-31); CHLORIDE LEVEL 103 MMOL/L (98-107); CHOLESTEROL LEVEL 159 MG/DL (<200); CHOLESTEROL RISK RATIO 3.81 (<5); GLOMERULAR FILTRATION RATE > 60.0 (>56); GLUCOSE, FASTING 99 MG/DL (60-100); HDL CHOLESTEROL 41.7 MG/DL (>40); LDL CHOLESTEROL 96.1 MG/DL (<100); NON-HDL-C 117 MG/DL; POTASSIUM SERUM 3.7 MMOL/L (3.5-5.1); PROSTATIC SPECIFIC AG MONITOR 0.57 NG/ML (< 4.00); SODIUM LEVEL 142 MMOL/L (136-145); TOTAL PROTEIN 6.6 G/DL (5.7-8.2); TRIGLYCERIDES LEVEL 106 MG/DL (<150)
== END ==
LOC: M PLALAB 08:34
PROVIDERS: ATTEND Family Medicine
DX: Z00.00 Encounter for general adult medical examination without abnormal findings (principal); Z12.5 Encounter for screening for malignant neoplasm of prostate

== ENCOUNTER → 2023-08-22 | Outpatient (CLI) | payer OTHER | LOC: M RAD 11:10 | PROVIDERS: ATTEND Internal Medicine Critical Care Medicine | DX: R05.9 Cough, unspecified (principal) ==

== ENCOUNTER 2023-11-25 18:05 | Emergency (ER) | payer OTHER ==
[~2023-11-25] VITALS: Ht 177.8 cm; Wt 90.3 kg
[2023-11-25] MEDS ORDERED: SILD100T (18:16)
[2023-11-25] MEDS: LIDOCAINE 1% MDV 20ML VIAL SC ONE (20:00)
[2023-11-25] MEDS: CEPHALEXIN 500 MG CAP PO ONE (20:05)
[2023-11-25] MEDS: BOOSTRIX VACCINE (TETANUS/DIPHTH/ACEL. PERTUSSIS) 0.5ML SYR IM.IMMUN ONE (20:05)
[2023-11-25] MEDS: NEOSPORIN OINT 0.9 GM PKT TOP ONE (20:40)
[2023-11-25 20:59] VITALS: BP 140/89; TEMP 97.8; O2SAT 99
[2023-11-25] MEDS ORDERED: CEPH500C PO (21:01)
== END 2023-11-25 21:12 | disposition home or self-care (01) ==
LOC: M ED 18:05
DX: S61.411A Laceration without foreign body of right hand, initial encounter (principal); S62.606A Fracture of unspecified phalanx of right little finger, initial encounter for closed fracture; Y92.019 Unspecified place in single-family (private) house as the place of occurrence of the external cause; Y93.9 Activity, unspecified; Y99.9 Unspecified external cause status; I10 Essential (primary) hypertension; K21.9 Gastro-esophageal reflux disease without esophagitis; Z91.09 Other allergy status, other than to drugs and biological substances; Z79.2 Long term (current) use of antibiotics; Z23 Encounter for immunization

== ENCOUNTER → 2023-12-07 | Outpatient (CLI) | payer OTHER ==
[~2023-12-07] MED LIST changes: +CEPH500C PO; +SILD100T
== END ==
LOC: M SOG 07:58
PROVIDERS: ATTEND Physician Assistant
DX: S61.411D Laceration without foreign body of right hand, subsequent encounter (principal); Z53.9 Procedure and treatment not carried out, unspecified reason